=== PATIENT | male | born 1995 | race African-American/Black ===

== ENCOUNTER 2017-03-08 13:57 | Observation (INO) | payer BC ==
[~2017-03-08] VITALS: Ht 182.9 cm; Wt 100.0 kg
[~2017-03-08 13:57] MED LIST: IBUP800T23 PO; TRAM50 PO
[2017-03-08 13:59] VITALS: BP 146/103; PULSE 96; RESP 18; TEMP 97.5; O2SAT 97
[2017-03-08] MEDS ORDERED: FOCA40CA PO (14:25)
[2017-03-08] MEDS ORDERED: SODIUM CHLOR 0.9% 1000 ML INJ 1,000 ML IV ONE (14:30)
[2017-03-08 14:46] LABS: BASOPHIL # 0.1 TH/MM3 (0-0.2); EOSINOPHIL # 0.1 TH/MM3 (0-0.4); EOSINOPHIL % 1.5 % (0.0-4.0); HEMATOCRIT 49.4 % (39.0-51.0); HEMO FLAGS DIFF FINAL; LYMPH % 33.7 % (9.0-44.0); LYMPHOCYTE # 2.4 TH/MM3 (1.0-4.8); MEAN CELL VOLUME 78.6 FL (80.0-100.0); MEAN CORPUSCULAR HGB CONC 34.4 % (32.0-36.0); MONO % 6.9 % (0.0-8.0); NEUT % 56.9 % (16.0-70.0); PLATELET COUNT 242 TH/MM3 (150-450); RED BLOOD COUNT 6.28 MIL/MM3 (4.50-5.90); RED CELL DISTRIBUTION WIDTH 12.9 % (11.6-17.2)
--- NOTE | 2017-03-08 14:52 | PD ---
HPI Chief Complaint: Numbness/Tingling Time Seen by Provider: 14:07 Travel History International Travel<30 days: No Contact w/Intl Traveler<30days: No Traveled to known affect area: No History of Present Illness HPI This is a 21-year-old college student who was previously healthy, who presents today with complaints of bilateral hand spasms and pain. The patient reports waking up with his hands contracted and reports that it is painful to open his fingers and move his hands. He reports the pain extends up to his mid forearm. He denies any previous history of such. He denies any injuries. He denies a previous history of such. He denies any neck pain or neck injuries in the past. He states he was seen at the campus clinic and they told him to come be evaluated in the emergency department. There are no other reported complaints time my evaluation. PFSH Past Medical History ADHD: Yes Diminished Hearing: No Social History Alcohol Use: No Tobacco Use: Yes Substance Use: No Allergies-Medications (Allergen,Severity, Reaction): Coded Allergies: No Known Allergies (Unverified , 10/01/15) Reported Meds & Prescriptions Reported Meds & Active Scripts Active Reported Focalin XR 24 HR (Dexmethylphenidate HCl) 40 Mg Cap 40 Mg PO DAILY Review of Systems Except as stated in HPI: all other systems reviewed are Neg General / Constitutional: No: Fever, Chills HENT: No: Headaches, Neck Stiffness, Neck Pain Cardiovascular: No: Chest Pain or Discomfort, Palpitations, Tachycardia Respiratory: No: Cough, Shortness of Breath, Wheezing Gastrointestinal: No: Nausea, Vomiting, Abdominal Pain Genitourinary: No: Dysuria, Nocturia Musculoskeletal: Positive: Limited ROM (secondary to pain), Pain (bilateral hands and mid forearm), No: Weakness Neurologic: Positive: Other (pain to the bilateral hands and forearm with pain with flexion and grasping of his hands.), No: Weakness, Sensory Disturbance Psychiatric: Positive: Other (history of ADHD.), No: Substance Abuse Physical Exam Narrative GENERAL: Well-developed well-nourished male in no acute rest her distress. SKIN: Focused skin assessment warm/dry. HEAD: Atraumatic. Normocephalic. EYES: Pupils equal and round. No scleral icterus. No injection or drainage. ENT: No nasal bleeding or discharge. Mucous membranes pink and moist. NECK: Trachea midline. Supple. No posterior spinous process tenderness. Full range of motion. CARDIOVASCULAR: Regular rate and rhythm. No murmur appreciated. RESPIRATORY: No accessory muscle use. Clear to auscultation. Breath sounds equal bilaterally. GASTROINTESTINAL: Abdomen soft, non-tender, nondistended. Hepatic and splenic margins not palpable. MUSCULOSKELETAL: No obvious deformities. No clubbing. No cyanosis. No edema. Patient's hands are in the contracted state. He is able to open and close his fingers. He reports pain in his fingers that extends up to his mid forearm when he performs this task. Cap refill is less than 3 seconds on all 5 digits of both hands. There is palpable dorsalis pedis pulses as well as ulnar pulses bilaterally. NEUROLOGICAL: Awake and alert. No obvious cranial nerve deficits. Motor grossly within normal limits. Normal speech. PSYCHIATRIC: Appropriate mood and affect; insight and judgment normal. Data Data Last Documented VS Vital Signs Date Time Temp Pulse Resp B/P (MAP) Pulse Ox O2 Delivery O2 Flow Rate FiO2 03/08/17 16:34 94 18 158/95 (116) 98 03/08/17 13:59 97.5 Orders Orders Complete Blood Count With Diff (03/08/17 14:21) Basic Metabolic Panel (Bmp) (03/08/17 14:21) Magnesium (Mg) (03/08/17 14:21) Phosphorus (Po4) (03/08/17 14:21) Iv Access Insert/Monitor (03/08/17 14:21) Sodium Chlor 0.9% 1000 Ml Inj (Ns 1000 M (03/08/17 14:30) Place In Observation (03/08/17 ) Code Status (03/08/17 16:44) Vital Signs (Adult) SHIVANI.Q4H (03/08/17 16:44) Activity Oob Ad Palma (03/08/17 16:44) Intake + Output 06,14,22 (03/08/17 16:44) Diet 1800 Ada Cons Carb (03/08/17 Dinner) Resp Oxygen Truong C Titrat 1-4 L (03/08/17 ) Sodium Chloride 0.9% Flush (Ns Flush) (03/08/17 16:45) Sodium Chloride 0.9% Flush (Ns Flush) (03/08/17 21:00) Insulin Human Regular Inj (Novolin R Inj (03/08/17 17:15) Labs Laboratory Tests Test 03/08/17 14:20 White Blood Count 7.0 TH/MM3 Red Blood Count 6.28 MIL/MM3 Hemoglobin 17.0 GM/DL Hematocrit 49.4 % Mean Corpuscular Volume 78.6 FL Mean Corpuscular Hemoglobin 27.0 PG Mean Corpuscular Hemoglobin Concent 34.4 % Red Cell Distribution Width 12.9 % Platelet Count 242 TH/MM3 Mean Platelet Volume 9.4 FL Neutrophils (%) (Auto) 56.9 % Lymphocytes (%) (Auto) 33.7 % Monocytes (%) (Auto) 6.9 % Eosinophils (%) (Auto) 1.5 % Basophils (%) (Auto) 1.0 % Neutrophils # (Auto) 4.0 TH/MM3 Lymphocytes # (Auto) 2.4 TH/MM3 Monocytes # (Auto) 0.5 TH/MM3 Eosinophils # (Auto) 0.1 TH/MM3 Basophils # (Auto) 0.1 TH/MM3 CBC Comment DIFF FINAL Differential Comment Blood Urea Nitrogen 15 MG/DL Creatinine 1.09 MG/DL Random Glucose 466 MG/DL Calcium Level 9.4 MG/DL Phosphorus Level 3.3 MG/DL Magnesium Level 2.2 MG/DL Sodium Level 132 MEQ/L Potassium Level 4.9 MEQ/L Chloride Level 97 MEQ/L Carbon Dioxide Level 27.1 MEQ/L Anion Gap 8 MEQ/L Estimat Glomerular Filtration Rate 105 ML/MIN [facility] Medical Decision Making Medical Screen Exam Complete: Yes Emergency Medical Condition: Yes Differential Diagnosis Dehydration versus electrolyte abnormality versus radiculopathy Narrative Course 21-year-old male presents with bilateral carpal spasms. Patient also had pain with flexion and extension of his hands. Patient states he woke up this way. Patient has no previous history of this. There is no other history of electrolyte abnormalities. The patient was noted to have a blood sugar of 466. He has no history of diabetes personally but does have family history. Patient has new onset diabetic. He's been discussed with Dr. Gonzalez with the resident mission service, he'll be admitted to the service for new onset diabetes and blood glucose control. Diagnosis Primary Impression: Diabetes mellitus, new onset Additional Impression: bilateral hand spasms. Admitting Information Admitting Physician Requests: Admit Theodore Reed MD Mar 08, 2017 14:52
[2017-03-08 15:17] LABS: ANION GAP 8 MEQ/L (5-15); BICARBONATE 27.1 MEQ/L (21.0-32.0); CHLORIDE 97 MEQ/L (98-107); GLOMERULAR FILTRATION RATE 105 ML/MIN (>89); MAGNESIUM 2.2 MG/DL (1.5-2.5); POTASSIUM 4.9 MEQ/L (3.5-5.1); SODIUM (NA) 132 MEQ/L (136-145)
[2017-03-08 15:34] LABS: BLOOD UREA NITROGEN 15 MG/DL (7-18)
[2017-03-08 16:34] VITALS: BP 158/95; PULSE 94; RESP 18; O2SAT 98
[2017-03-08] MEDS ORDERED: SODIUM CHLORIDE 0.9% FLUSH 10 ML FLUSH IV FLUSH PRN (16:45)
--- NOTE | 2017-03-08 17:00 | HHI.HP ---
[facility] Service Family Medicine Primary Care Physician No Primary Care Physician Admission Diagnosis Diagnoses: International Travel<30 Days: No Contact w/Intl Traveler<30days: No Known Affected Area: No History of Present Illness Patient is a 21-year-old student with past medical history significant for ADD presenting to the ED due to pain and cramping of his hands and arms. Pain was worse with movement, no radiation. He did not do anything or take any medications to try to relieve pain. He denies experiencing similar pain in the past. He was seen at the clinic on campus and advised to go to the ED. He reports that he does not have a primary care doctor. He denies ever having problems with his blood sugars or being diagnosed with diabetes. He has been told that his blood pressures were elevated once of the past, he has never been diagnosed with hypertension. (Sergio Gonzalez MD R3) Review of Systems Constitutional: DENIES: Fever, Chills, Dizziness Eyes: DENIES: Blurred vision Ears, nose, mouth, throat: DENIES: Vertigo Cardiovascular: DENIES: Chest pain Gastrointestinal: DENIES: Abdominal pain Musculoskeletal: COMPLAINS OF: Muscle aches Integumentary: COMPLAINS OF: Rash (impetigo) Immunologic/allergic: DENIES: Eczema Neurologic: DENIES: Headache, Localized weakness Psychiatric: DENIES: Mood changes (Sergio Gonzalez MD R3) Past Family Social History Past Medical History ADD Past Surgical History [place] tooth removal x4 Reported Medications Reported Meds & Active Scripts Active Reported Focalin XR 24 HR (Dexmethylphenidate HCl) 40 Mg Cap 40 Mg PO DAILY (Sergio Gonzalez MD R3) Allergies: Coded Allergies: No Known Allergies (Unverified , 10/01/15) Active Ordered Medications Inpatient Medications Dexmethylphenidate HCl (Focalin Xr) 40 mg DAILY PO ; Start 03/09/17 at 09:00 Dextrose (D50w (Vial) Inj) 50 ml UNSCH PRN IV PUSH HYPOGLYCEMIA-SEE COMMENTS; Start 03/08/17 at 20:45 Glucagon (Glucagon Inj) 1 mg UNSCH PRN OTHER HYPOGLYCEMIA-SEE COMMENTS; Start 03/08/17 at 20:45 Hydralazine HCl (Apresoline Inj) 10 mg Q6H PRN IV PUSH SBP>160, DBP>90; Start 03/08/17 at 21:00 Insulin Aspart (NovoLOG SUPPLEMENTAL SCALE) 1 ACHS SLIDING SCALE SQ Last administered on 03/08/17 20:59; Start 03/08/17 at 21:00 Insulin Human Regular (NovoLIN R INJ) 6 units ONCE ONCE IV PUSH Last administered on 03/08/17 17:13; Start 03/08/17 at 17:15; Stop 03/08/17 at 17:16 ; Status DC Sodium Chloride 1,000 ml @ 125 mls/hr Q8H IV Last administered on 03/08/17 18 :39; Start 03/08/17 at 18:30 Sodium Chloride (NS Flush) 2 ml BID IV FLUSH ; Start 03/08/17 at 21:00 Family History Mother: DM, healthy, 50s Father: Healthy, 70s Both sides of the family have DM, HTN Social History Currently a student at [employer] Lives on campus Denies smoking, drinking, illicit substance use (Sergio Gonzalez MD R3) Physical Exam Vital Signs Vital Signs Date Time Temp Pulse Resp B/P (MAP) Pulse Ox O2 Delivery O2 Flow Rate FiO2 03/08/17 16:34 94 18 158/95 (116) 98 03/08/17 13:59 97.5 96 18 146/103 (117) 97 Physical Exam GENERAL: This is a well-nourished, well-developed patient, in no apparent distress. SKIN: Rash above upper lip, no ecchymoses or lesions. Cool and dry. HEAD: Atraumatic. Normocephalic. No temporal or scalp tenderness. EYES: Pupils equal round and reactive. Extraocular motions intact. No scleral icterus. No injection or drainage. ENT: Nose without bleeding, purulent drainage or septal hematoma. Throat without erythema, tonsillar hypertrophy or exudate. Uvula midline. Airway patent. NECK: Trachea midline. No JVD or lymphadenopathy. Supple, nontender, no meningeal signs. CARDIOVASCULAR: Regular rate and rhythm without murmurs, gallops, or rubs. RESPIRATORY: Clear to auscultation. Breath sounds equal bilaterally. No wheezes , rales, or rhonchi. GASTROINTESTINAL: Abdomen soft, non-tender, nondistended. No hepato-splenomegaly , or palpable masses. No guarding. MUSCULOSKELETAL: Extremities without clubbing, cyanosis, or edema. No joint tenderness, effusion, or edema noted. No calf tenderness. Negative Homans sign bilaterally. NEUROLOGICAL: Awake and alert. Cranial nerves II through XII intact. Motor and sensory grossly within normal limits. Five out of 5 muscle strength in all muscle groups. Normal speech. Laboratory Laboratory Tests Test 03/08/17 14:20 White Blood Count 7.0 Red Blood Count 6.28 Hemoglobin 17.0 Hematocrit 49.4 Mean Corpuscular Volume 78.6 Mean Corpuscular Hemoglobin 27.0 Mean Corpuscular Hemoglobin Concent 34.4 Red Cell Distribution Width 12.9 Platelet Count 242 Mean Platelet Volume 9.4 Neutrophils (%) (Auto) 56.9 Lymphocytes (%) (Auto) 33.7 Monocytes (%) (Auto) 6.9 Eosinophils (%) (Auto) 1.5 Basophils (%) (Auto) 1.0 Neutrophils # (Auto) 4.0 Lymphocytes # (Auto) 2.4 Monocytes # (Auto) 0.5 Eosinophils # (Auto) 0.1 Basophils # (Auto) 0.1 CBC Comment DIFF FINAL Differential Comment Blood Urea Nitrogen 15 Creatinine 1.09 Random Glucose 466 Calcium Level 9.4 Phosphorus Level 3.3 Magnesium Level 2.2 Sodium Level 132 Potassium Level 4.9 Chloride Level 97 Carbon Dioxide Level 27.1 Anion Gap 8 Estimat Glomerular Filtration Rate 105 (Sergio Gonzalez MD R3) Result Diagram: 03/08/17 14203/08/171419 Caprini VTE Risk Assessment Caprini VTE Risk Assessment: No/Low Risk (score <= 1) Caprini Risk Assessment Model Point Value = 1 Point Value = 2 Point Value = 3 Point Value = 5 Age 41-60 Minor surgery BMI > 25 kg/m2 Swollen legs Varicose veins or History of unexplained or recurrent spontaneous Oral contraceptives or hormone replacement Sepsis (< 1 month) Serious lung disease, including pneumonia (< 1 month) Abnormal pulmonary function Acute myocardial infarction Congestive heart failure (< 1 month) History of inflammatory bowel disease Medical patient at bed rest Age 61-74 Arthroscopic surgery Major open surgery (> 45 min) Laparoscopic surgery (> 45 min) Malignancy Confined to bed (> 72 hours) Immobilizing plaster cast Central venous access Age >= 75 History of VTE Family history of VTE Factor V Leiden Prothrombin [id number] Lupus anticoagulant Anticardiolipin antibodies Elevated serum homocysteine Heparin-induced thrombocytopenia Other congenital or acquired thrombophilia Stroke (< 1 month) Elective arthroplasty Hip, pelvis, or leg fracture Acute spinal cord injury (< 1 month) Prophylaxis Regimen Total Risk Factor Score Risk Level Prophylaxis Regimen 0-1 Low Early ambulation 2 Moderate Order ONE of the following: *Sequential Compression Device (SCD) *Heparin 5000 units SQ BID 3-4 Higher Order ONE of the following medications: *Heparin 5000 units SQ TID *Enoxaparin/Lovenox 40 mg SQ daily (WT < 150 kg, CrCl > 30 mL/min) *Enoxaparin/Lovenox 30 mg SQ daily (WT < 150 kg, CrCl > 10-29 mL/min) *Enoxaparin/Lovenox 30 mg SQ BID (WT < 150 kg, CrCl > 30 mL/min) AND/OR *Sequential Compression Device (SCD) 5 or more Highest Order ONE of the following medications: *Heparin 5000 units SQ TID (Preferred with Epidurals) *Enoxaparin/Lovenox 40 mg SQ daily (WT < 150 kg, CrCl > 30 mL/min) *Enoxaparin/Lovenox 30 mg SQ daily (WT < 150 kg, CrCl > 10-29 mL/min) *Enoxaparin/Lovenox 30 mg SQ BID (WT < 150 kg, CrCl > 30 mL/min) AND *Sequential Compression Device (SCD) (Sergio Gonzalez MD R3) Assessment and Plan Assessment and Plan Pt is a 21 year old with past medical history significant for ADD presenting due to hand and arm pain, found to have blood glucose elevated to elevated to 466 and an elevated blood pressure reading of 143/103. Code Status Full Discussed Condition With [facility] Medicine team (Sergio Gonzalez MD R3) Problem List: (1) Diabetes mellitus, new onset ICD Codes: E11.9 - Type 2 diabetes mellitus without complications Status: Acute Plan: On admission random glucose elevated to 466. Urine glucose elevated to 1000, urine ketones 40. Beta hydroxybutyrate ordered. -10 units of Levemir QHS -Low-dose insulin sliding scale -Hemoglobin A1c ordered -nurses educator consulted -Dietitian consulted -Case management consulted to assist patient with arranging PCP follow-up (2) Elevated blood pressure reading ICD Codes: R03.0 - Elevated blood-pressure reading, without diagnosis of hypertension Plan: On admission blood pressure elevated to 146/103, patient denies prior diagnosis of hypertension. He was first told that his blood pressure was elevated about one year ago, there was no additional follow up. -Currently within normal limits -Continue to monitor blood pressure, consider initiating antihypertensive agent if needed -Hydralazine 10 mg PRN -TSH -Urine microalbumin creatinine ratio -Lipid profile -UDS negative (3) FEN/PPX Plan: Fluids: NS 140mls/hr Electrolytes: Sodium low at 132, within normal limits at 138 when corrected for elevated glucose. Potassium within normal limits. Continue to monitor Nutrition: Diabetic diet DVT PPX: RACHEL, SCDs, Early ambulation (Sergio Gonzalez MD R3) Sergio Gonzalez MD R3 Mar 08, 2017 17:00 Lotus Holland MD Mar 09, 2017 16:21
[2017-03-08] MEDS ORDERED: INSULIN HUMAN REGULAR 1,000 UNITS/10 ML VIAL IV PUSH ONE (17:15)
[2017-03-08] MEDS: SODIUM CHLOR 0.9% 1000 ML INJ 1,000 ML IV SCH (18:39)
[2017-03-08 19:31] LABS: BLOOD, URINE NEG (NEG); GLUCOSE,URINE 1000 mg/dL (NEG); KETONE, URINE 40 mg/dL (NEG); NITRITE,URINE NEG (NEG); URINE COLOR LIGHT-YELLOW (YELLW/STRAW)
[2017-03-08 19:32] LABS: COMMENT (UR) CULT NOT INDICATED; CULTURE IF INDICATED CULT NOT INDICATED
[2017-03-08 19:44] VITALS: BP 125/83; PULSE 87; RESP 16; O2SAT 97
[2017-03-08 19:50] VITALS: O2SAT 95
[2017-03-08] MEDS ORDERED: DEXTROSE 50% IN WATER 50 ML VIAL(D50) IV PUSH PRN (20:45)
[2017-03-08] MEDS ORDERED: GLUCAGON 1 MG/ML VIAL OTHER PRN (20:45)
[2017-03-08 20:46] VITALS: BP 139/81; PULSE 95; RESP 18; TEMP 98.2; O2SAT 96
[2017-03-08] MEDS: SODIUM CHLORIDE 0.9% FLUSH 10 ML FLUSH IV FLUSH SCH (20:54)
[2017-03-08] MEDS: INSULIN ASPART SUPPLEMENTAL SCALE SQ SCH (20:59)
[2017-03-08] MEDS ORDERED: hydrALAZINE HCL 20 MG/ML VIAL IV PUSH PRN (21:00)
[2017-03-08] MEDS ORDERED: INSULIN DETEMIR 100 UNITS/ML VIAL SQ SCH (21:30)
[2017-03-08 22:45] LABS: HDL CHOLESTEROL 30.4 MG/DL (40.0-60.0)
[2017-03-08 22:53] LABS: ALKALINE PHOSPHATASE 155 U/L (45-117); ALT (GPT) 98 U/L (9-52); AST (GOT) 58 U/L (15-39); TOTAL BILIRUBIN ADULT 0.6 MG/DL (0.2-1.0)
[2017-03-08 23:54] VITALS: BP 137/94; PULSE 67; RESP 18; TEMP 97.4; O2SAT 97
[2017-03-09] MEDS: SODIUM CHLOR 0.9% 1000 ML INJ 1,000 ML IV SCH ×2 (00:24→06:22)
[2017-03-09 03:58] VITALS: BP 158/103; PULSE 92; RESP 19; TEMP 97.6; O2SAT 98
[2017-03-09 07:54] VITALS: BP 138/96; PULSE 99; RESP 20; TEMP 97.6; O2SAT 98
[2017-03-09 07:57] LABS: ALKALINE PHOSPHATASE 85 U/L (45-117); ALT (GPT) 83 U/L (9-52); ANION GAP 7 MEQ/L (5-15); AST (GOT) 40 U/L (15-39); BETA-HYDROXYBUTYRATE 0.45 MMOL/L (0.00-0.39); BICARBONATE 26.2 MEQ/L (21.0-32.0); BLOOD UREA NITROGEN 8 MG/DL (7-18); CHLORIDE 104 MEQ/L (98-107); GLOMERULAR FILTRATION RATE 161 ML/MIN (>89); POTASSIUM 3.5 MEQ/L (3.5-5.1); SODIUM (NA) 137 MEQ/L (136-145); TOTAL BILIRUBIN ADULT 0.8 MG/DL (0.2-1.0)
[2017-03-09] MEDS: SODIUM CHLORIDE 0.9% FLUSH 10 ML FLUSH IV FLUSH SCH (09:00)
[2017-03-09] MEDS ORDERED: DEXMETHYLPHENIDATE HCL 10 MG EXTENDED RELEASE CAP PO SCH (09:00)
[2017-03-09] MEDS ORDERED: LISINOPRIL 10 MG TAB PO SCH (10:00)
[2017-03-09] MEDS: INSULIN ASPART SUPPLEMENTAL SCALE SQ SCH (10:09)
[2017-03-09 10:24] VITALS: O2SAT 98
--- NOTE | 2017-03-09 10:59 | HHI.DCPOC ---
Discharge Care Plan Diagnosis: (1) Elevated blood pressure reading (2) Diabetes mellitus, new onset (3) Overweight Goals to Promote Your Health * To prevent worsening of your condition and complications * To maintain your health at the optimal level Directions to Meet Your Goals Take your medications as prescribed Follow your dietary instruction Follow activity as directed Keep your appointments as scheduled Take your immunizations and boosters as scheduled If your symptoms worsen call your PCP, if no PCP go to Urgent Care Center or Emergency Room Smoking is Dangerous to Your Health. Avoid second hand smoke Call the 24-hour hour crisis hotline for domestic abuse at Sergio Gonzalez MD R3 Mar 09, 2017 10:59 Lotus Holland MD Mar 09, 2017 16:20
[2017-03-09] MEDS ORDERED: LISI10TA3 PO (11:00)
[2017-03-09] MEDS ORDERED: METF1000 PO (11:03)
[2017-03-09 11:27] VITALS: BP 149/105; PULSE 92; RESP 18; TEMP 97.8; O2SAT 98
[2017-03-09 12:14] LABS: HEMOGLOBIN A1a 1.3 %; HEMOGLOBIN Ao 75.3 %; HEMOGLOBIN LA1C 2.9 %; HEMOGLOBIN P3 5.1 %
--- NOTE | 2017-03-09 16:32 | HHI.FPPN ---
Subjective Subjective Patient seen and examined with the resident team. Case reviewed and discussed Please refer to resident H&P for further details regarding HPI, ROS, PMH, SurgHx , FH and SocHx In summary, patient is a 21yoM with a history of ADD presenting with tingling in hands and found to have hyperglycemia. He was not previously aware of any diagnosis of DM. Patient is seen this am with improvement in his glucose overnight. Friend are at the bedside He feels much better this am and wants to go home. [facility] Objective Objective Laboratory Tests - Abnormals Test 03/08/17 18:50 03/09/17 06:50 Urine Protein 30 mg/dL Urine Glucose (UA) 1000 mg/dL Urine Ketones 40 mg/dL Urine Microalbumin/Creatinine Ratio 498 MG/G CRE Random Glucose 250 MG/DL Total Protein 6.2 GM/DL Albumin 3.2 GM/DL Aspartate Amino Transf (AST/SGOT) 40 U/L Alanine Aminotransferase (ALT/SGPT) 83 U/L Hemoglobin A1c 12.2 % B-Hydroxybutyrate 0.45 MMOL/L Vital Signs 03/08/17 03/08/17 03/08/17 03/08/17 16:34 19:44 19:50 20:02 Pulse 94 87 Resp 18 16 B/P (MAP) 158/95 (116) 125/83 (97) Pulse Ox 98 97 95 O2 Delivery Room Air 03/08/17 03/08/17 03/09/17 03/09/17 20:46 23:54 03:58 07:54 Temp 98.2 97.4 97.6 97.6 Pulse 95 67 92 99 Resp 18 18 19 20 B/P (MAP) 139/81 (100) 137/94 (108) 158/103 (121) 138/96 (110) Pulse Ox 96 97 98 98 03/09/17 03/09/17 10:24 11:27 Temp 97.8 Pulse 92 Resp 18 B/P (MAP) 149/105 (120) Pulse Ox 98 98 FiO2 21 Physical exam GENERAL: Obese male, wdwn resting in bed. NAD SKIN: Warm and dry. No rashes HEAD: Normocephalic. AT EYES: No scleral icterus. No injection or drainage. ENT: OP clear. MMM NECK: Supple, trachea midline. No JVD or lymphadenopathy. CARDIOVASCULAR: Regular rate and rhythm without murmurs, gallops, or rubs. RESPIRATORY: Breath sounds equal and clear to auscultation bilaterally. No accessory muscle use. GASTROINTESTINAL: Abdomen soft, non-tender, nondistended. No rebound. Normal activs BS MUSCULOSKELETAL: No cyanosis, or edema. No calf tenderness. BACK: Nontender without obvious deformity. No CVA tenderness. NEURO: Awake and alert. Normal speech. Motor and sensory grossly intact and equal bilaterally. Assessment Assessment 21yoM admitted with: New onset diabetes Hyperglycemia Hypertriglyceridemia Obesity Elevated BP Transaminitis PLAN PLAN Dietary counseling Lifestyle modification counseling Follow BMP Responded well to Levemir Initiate Metformin as outpatient with rx to titrate dose as tolerated Lisinopril for renal protection Has information printed out for apt with Dr. Moore, endocrine and PCP Diabetic education. Patient seen and examined. Case reviewed and discussed Agree with plan of care as discussed with me and documented in the resident note Lotus Holland MD Mar 09, 2017 16:32
[2017-03-22] MEDS ORDERED: ACCUMIS25 (16:22)
[2017-03-22] MEDS ORDERED: ONETTES4 (16:22)
== END 2017-03-09 14:34 | disposition home or self-care (01) ==
LOC: NEPE 13:57 → NEDA 18:19 → NEPHCDU 20:01
PROVIDERS: ADMIT Family Medicine; ATTEND Family Medicine
DX: E11.65 Type 2 diabetes mellitus with hyperglycemia (principal); R03.0 Elevated blood-pressure reading, without diagnosis of hypertension; E78.1 Pure hyperglyceridemia; R74.0 Nonspecific elevation of levels of transaminase and lactic acid dehydrogenase [LDH]; E66.9 Obesity, unspecified
CPT/HCPCS: 80053; 80061; 80307; 81001; 82010; 82043; 82948; 83036; 83735; 84100; 84443; 85025; 96361; 96372; 96374; 96375; 97162; 99285; G0378; G8987; G8988; J0360; J1815; J7030